=== PATIENT | female | born 1965 | race Hispanic/Latino ===

== ENCOUNTER 2025-10-02 18:53 | Emergency (ER) | payer BC ==
[~2025-10-02] VITALS: Ht 157.5 cm; Wt 62.2 kg
--- NOTE | 2025-10-02 19:11 | NUR ---
UA CUP PROVIDED
--- NOTE | 2025-10-02 19:29 | NUR ---
UA COLLECTED AND SENT ORDERED
--- NOTE | 2025-10-02 19:31 | EKG ---
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
[2025-10-02 19:38] LABS: APPEARANCE,URINE CLOUDY (CLEAR); GLUCOSE, URINE (UA) 50 mg/dL (NEGATIVE); LEUKOCYTE ESTERASE ,URINE 500 Leu/uL (NEGATIVE); NITRATE,URINE NEGATIVE (NEGATIVE); OCCULT BLOOD,URINE NEGATIVE (NEGATIVE)
[2025-10-02 19:54] LABS: ADD UA MICROSCOPIC YES
[2025-10-02 19:56] LABS: IMMATURE GRANULOCYTE ABSOLUTE 0.07 K/uL (0-1); NUCLEATED RED BLOOD CELLS 0.0 % (0.0-0.19); PLATELET COUNT (AUTO) 243 K/uL (130-400); RED BLOOD CELL COUNT(AUTO) 5.22 MIL/uL (4.00-5.50); RED CELL DISTRIBUTION WIDTH 13.7 % (11.0-15.5); WHITE BLOOD COUNT (AUTO) 7.5 K/uL (4.8-10.8)
[2025-10-02 19:57] LABS: OTHER CASTS, URINE 2 /LPF (None Seen); SQUAMOUS EPITHELIAL CELL,UR MANY /HPF (0-2); UNCLASSIFIED CRYSTAL 3 /HPF (None Seen)
[2025-10-02 20:01] LABS: CREATININE 0.6 mg/dL (0.5-1.0); GLOMERULAR FILTR. RATE CALC 103.0 mL/min (>90); GLUCOSE,RANDOM 185.0 mg/dL (70-105); SODIUM SERUM 132.0 mmol/L (136-145); UREA NITROGEN, BLOOD 12.0 mg/dL (7-18)
[2025-10-02 20:24] LABS: CREATINE KINASE, TOTAL 142.0 U/L (21-232)
[2025-10-02 20:28] VITALS: BP 176/95; PULSE 98; RESP 18; TEMP 97.5; O2SAT 97
[2025-10-02] MEDS: 0.9%NACL 1000ML 1,000 ML IV ONE (20:49)
[2025-10-02] MEDS ORDERED: NITR100C PO (21:09)
--- NOTE | 2025-10-02 21:09 | ERN ---
ED Note History of Present Illness Stated Complaint: WEAKNESS Chief Complaint: Weakness Time Seen by MD: 19:17 Dictation: This is a 59-year-old female with a chronic medical problems was brought to the emergency room by patient's daughter for evaluation of weakness and debility. It was most pronounced today and apparently she was holding her granddaughter and almost fell down due to feeling generalized weakness. No injury to the head back. She denied any nausea vomitings diarrhea. She also denied any fever chills rigors. No history of any weight gain or blood loss. No headache blurred vision facial droop diplopia motor weakness or seizure activity. No b ladder or bowel incontinence. Patient has no difficulty ambulating. Patient denied any tingling and numbness of the legs. Temperature 98.1 pulse 87 respirations 18 blood pressure 191/97 with a pulse oximetry of 98% on room air Chronic medical problems include diabetes mellitus type 2, hypercholesterolemia and hypertension Allergies: Coded Allergies: No Known Drug Allergies (Unverified Allergy, Unknown, 10/02/25) Home Meds Active Scripts Nitrofurantoin Macrocrystal (Nitrofurantoin) 100 Mg Capsule, 1 CAP PO BID for 7 Days, #14 CAP 0 Refills Prov:DAINA RODRÍGUEZ MD 10/02/25 Past Medical History Past Medical History: Diabetes-Type II, High Cholesterol, Hypertension Surgical History: None Family History: Negative Social History: Negative History: Not Applicable RN Note Reviewed/Agreed w/PFSH: Yes Review of System Dictation Constitutional: Negative for fever,chills, and weight loss Eyes: Negative for injury, pain,redness, and discharge ENT: Negative for injury,pain or swelling Cardiovascular: Negative for chest pain, palpitations, and edema Respiratory: Negative for shortness of breath, cough, and wheezing, Abdomen/GI: Negative for abdominal pain, nausea, vomiting, diarrhea, and constipation Back: Negative for injury and pain : Negative for injury, bleeding and discharge MS/Extremity: Negative for injury and deformity Skin: Negative for rash, and discoloration Neuro: Negative for headache, weakness, numbness, tingling, and seizure positive for weakness of the legs and unsteadiness Psych: Negative for suicide ideation, homicidal ideation, and hallucinations Initial Vital Sign VS Vital Signs Date Time Temp Pulse Resp B/P (MAP) Pulse Ox O2 Delivery O2 Flow Rate FiO2 10/02/25 18:56 98.1 87 18 191/97 98 Room Air 10/02/25 20:28 0 21 Physical Exam Dictation General: awake, alert, NAD Head/Face: Normocephalic, atraumatic Eyes: PERRL, EOMI, vision at baseline ENT: oral cavity clear, TMs clear, no signs of infection mucous membranes are very dry Neck: Trachea midline, supple, no nuchal rigidity Cardiovascular: RRR, normal S1/S2, No MRGs, no JVD Respiratory: CTAB, no respiratory distress, No rales or wheezes Abdomen: Soft, non-tender, non-distended, normal bowel sounds, no guarding or rebound. Skin: Warm, dry, poor turgor, no rash MS/Extremity: Pulses equal, no cyanosis, neurovascular intact, FROM Neuro: COAx4, GCS 15, strength 5/5, CN 2-12 intact, normal cerebellar exam, normal gait, Psych: Normal behavior, mood, and affect normal Extremities-trace edema without any palpable cords, Homans sign is negative Results (Laboratory/Radiology) Laboratory/Radiology Laboratory Tests Test 10/02/25 19:29 10/02/25 19:47 Urine Color LIGHT-YELLOW (YELLOW) Urine Appearance CLOUDY (CLEAR) H Urine pH 5.5 (5.0-8.0) Urine Specific [place] 1.007 (1.001-1.031) Urine Protein NEGATIVE mg/dL (NEGATIVE) Urine Glucose (UA) 50 mg/dL (NEGATIVE) H Urine Ketones NEGATIVE mg/dL (NEGATIVE) Urine Occult Blood NEGATIVE (NEGATIVE) Urine Nitrate NEGATIVE (NEGATIVE) Urine Bilirubin NEGATIVE mg/dL (NEGATIVE) Urine Urobilinogen 0.2 mg/dL (0.2-1.0) Urine Leukocyte Esterase 500 Dhruv/uL (NEGATIVE) H Urine RBC 2-5 /HPF (0-1) H Urine WBC 51-100 /HPF (0-1) H Urine Squamous Epithelial Cells MANY /HPF (0-2) Urine Other Crystals (Auto) 3 /HPF (None Seen) Urine Bacteria RARE /HPF (None Seen) Urine Other Casts 2 /LPF (None Seen) White Blood Count 7.5 K/uL (4.8-10.8) Red Blood Count 5.22 MIL/uL (4.00-5.50) Hemoglobin 13.7 g/dL (12.0-16.0) Hematocrit 42.4 % (36-48) Mean Corpuscular Volume 81.2 fL (79-99) Mean Corpuscular Hemoglobin 26.2 pg (27.0-33.0) L Mean Corpuscular Hemoglobin Concent 32.3 g/dL (32.0-36.0) Red Cell Distribution Width 13.7 % (11.0-15.5) Platelet Count 243 K/uL (130-400) Mean Platelet Volume 9.8 fL (7.5-10.5) Immature Granulocyte % (Auto) 0.9 % (0-1) Neutrophils (%) (Auto) 56.2 % (40.0-77.0) Lymphocytes (%) (Auto) 34.2 % (21.0-51.0) Monocytes (%) (Auto) 6.8 % (3.0-13.0) Eosinophils (%) (Auto) 1.1 % (0.0-8.0) Basophils (%) (Auto) 0.8 % (0.0-5.0) Neutrophils # (Auto) 4.2 K/uL (1.8-7.7) Lymphocytes # (Auto) 2.6 K/uL (1.0-4.8) Monocytes # (Auto) 0.5 K/uL (0.1-1.0) Eosinophils # (Auto) 0.08 K/uL (0.00-0.70) Basophils # (Auto) 0.06 K/uL (0.00-0.20) Absolute Immature Granulocyte (auto 0.07 K/uL (0-1) Nucleated Red Blood Cells 0.0 % (0.0-0.19) Sodium Level 132 mmol/L (136-145) L Potassium Level 3.8 mmol/L (3.5-5.1) Chloride Level 97 mmol/L (101-111) L Carbon Dioxide Level 21 mmol/L (21-32) Blood Urea Nitrogen 12 mg/dL (7-18) Creatinine 0.6 mg/dL (0.5-1.0) Glomerular Filtration Rate Calc 103 mL/min (>90) Random Glucose 185 mg/dL (70-105) H Total Calcium 9.3 mg/dL (8.5-10.1) Total Creatine Kinase 142 U/L (21-232) Troponin I High Sensitivity 7 ng/L (4-50) Thyroid Stimulating Hormone (TSH) 1.05 uIU/mL (0.36-3.74) Labs Reviewed?: Yes ED Course ED Course Orders Procedure Category Date Status Time 12 Lead Ekg Tracing- EKG 10/02/25 Complete Technical 19:10 Urinalysis Profile LAB 10/02/25 Complete 19:10 Cbc With Differential LAB 10/02/25 Complete 19:10 Basic Metabolic Panel LAB 10/02/25 Complete 19:10 Troponin I High LAB 10/02/25 Complete Sensitivity 19:10 Creatine Kinase, Total LAB 10/02/25 Complete 19:10 Thyroid Stimulating LAB 10/02/25 Complete Hormone 19:10 Culture Urine GEMA 10/02/25 In Process 19:57 0.9%Nacl 1000ml (Ns PHA 10/02/25 Complete 1000ml) 20:30 Ceftriaxone 1g Vial PHA 10/02/25 Complete (Rocephine 1g Inj) 20:30 Current Medications Medications (Trade) Dose Ordered Sig/Jaden Route PRN Reason Start Time Stop Time Status Last Admin Dose Admin Ceftriaxone Sodium (ROCEphine 1G INJ) 1 gm ONCE ONCE IVPB 10/02/25 20:30 10/02/25 20:31 DC 10/02/25 20:49 Sodium Chloride 1,000 ml @ 0 mls/hr ONCE ONCE IV 10/02/25 20:30 10/02/25 20:31 DC 10/02/25 20:49 Vital Signs Date Time Temp Pulse Resp B/P (MAP) Pulse Ox O2 Delivery O2 Flow Rate FiO2 10/02/25 20:28 97.5 98 18 176/95 97 Room Air* 0 21 10/02/25 18:56 98.1 87 18 191/97 98 Room Air We will perform diagnostic labs, and administer medications according to the patient's complaint. Once the results are available, will review and personally interpreted the labs to rule out any acute life-threatening emergency the trach require immediate intervention and treatment. I will then re-evaluate the patient after treatment and diagnostic exams have return to determine whether the patient requires any further testing, can safely be discharged home or need further admission to hospital for additional treatment and evaluation. Medical Decision Making MDM Differential diagnosis: Dehydration, hypothyroidism, anemia, infectious etiology, diabetic neuropathy This is a 59-year-old female with a chronic medical problems was brought to the emergency room by patient's daughter for evaluation of weakness and debility. It was most pronounced today and apparently she was holding her granddaughter and almost fell down due to feeling generalized weakness. No injury to the head back. She denied any nausea vomitings diarrhea. She also denied any fever c hills rigors. No history of any weight gain or blood loss. No headache blurred vision facial droop diplopia motor weakness or seizure activity. No bladder or bowel incontinence. Patient has no difficulty ambulating. Patient denied any tingling and numbness of the legs. Temperature 98.1 pulse 87 respirations 18 blood pressure 191/97 with a pulse oximetry of 98% on room air Chronic medical problems include diabetes mellitus type 2, hypercholesterolemia and hypertension 8:30 p.m. labs reviewed CBC shows a sodium of 132 chloride 97 BUN and creatinine of 12 and 0.6 bicarb of 21. TSH 1.05. Troponins 7. Urinalysis shows increased leuko esterase too numerous to count WBCs and nitrites suggestive of a bad urinary tract infection. Hydration, empiric antibiotic I had a long discussion with the patient and her daughter about possibilities and lab results so far and plan of care and they verbalized full understanding There is no focal neurological deficit or change in reflexes suggestive of any neurological pathology. Rationale: Tests considered and ordered secondary to shared decision making include: Labs Previous outside records reviewed: No Old ER visits. Risk of complication and/or morbidity or mortality of patient management: None Medications-Per medication reconciliation Need for hospitalization: Patient does not meet criteria for hospitalization. Need for emergency major/minor surgery: No There are no social concerns with this patient. Prescription drug management Prescriptions will include symptomatic care Patient's prior external medical records from other ER visits were reviewed by me as indicated. Prior testing and results from previous visits were reviewed. Prior tests were taken into account with medical decision making and resource utilization, independent historian/historians were used to obtain complete medical history. I independently interpreted the test that were performed, results were reviewed by me and considered findings on radiology if ordered. Medical management and examination interpretation discussions were had by me with other qualified healthcare professionals as indicated for the patient's care. Problem List Problem List: (1) Dehydration (2) Diabetes mellitus (3) Hyponatremia (4) UTI (urinary tract infection) DX & DISP Disposition: Discharge Departure Impression: Primary Impression: Dehydration Additional Impressions: Hyponatremia, Diabetes mellitus, UTI (urinary tract infection) Condition: Stable Scripts Nitrofurantoin Macrocrystal (Nitrofurantoin) 100 Mg Capsule 1 CAP PO BID for 7 Days, #14 CAP 0 Refills Prov: DAINA RODRÍGUEZ MD 10/02/25 Additional Instructions: Patient and the caregiver have been informed of all the diagnostic tests and the imaging conducted during the today's visit to the emergency room and has verbalized understanding of the results I have personally reviewed and interpreted all diagnostic exams performed here in the ER today as well as the vital signs documented by the nursing staff. The patient is now being discharged to home and should follow up with the primary care physician or the specialist as directed by the ER staff. Encourage p.o. fluids complete antibiotic course. Patient needs to follow up wi th her primary care physician. Referrals: LIDIA RUTHERFORD MD (PCP) DAINA RODRÍGUEZ MD Oct 02, 2025 21:09
== END 2025-10-02 22:05 | disposition home or self-care (01) ==
LOC: EDH 18:53
DX: E86.0 Dehydration (principal); N39.0 Urinary tract infection, site not specified; E87.1 Hypo-osmolality and hyponatremia; E11.9 Type 2 diabetes mellitus without complications; E78.00 Pure hypercholesterolemia, unspecified; I10 Essential (primary) hypertension; Z79.899 Other long term (current) drug therapy
CPT/HCPCS: 99284; 96374; 84443; 82550; 84484; 80048; 85025; 87086; 81001; 36415; 93005; J7030; J0696